=== PATIENT | female | born 1960 | race African-American/Black ===

== ENCOUNTER 2018-07-03 09:37 | Inpatient (IN) | payer OTHER ==
[~2018-07-03] VITALS: Ht 162.6 cm; Wt 124.7 kg
[~2018-07-03 09:37] MED LIST: ALL180 PO; AMLO10TA80 PO; AMLO5TAB88 PO; ASPI-867 PO; ATOR20TA65 PO; FERR325T23 PO; FURO40TA5 PO; LISI40TA4 PO; METO50TA95 PO; PRAS10TA6 PO
[2018-07-03 10:51] LABS: BASOPHILS % 0.2 % (0.0-2.0); EOSINOPHILS % 1.2 % (0.0-5.0); HEMATOCRIT. 33.3 % (36.0-48.0); MEAN CORPUSCULAR HEMOGLOBIN 27.4 pg (28.0-32.0); MEAN CORPUSCULAR VOLUME 83.4 fL (81.0-99.0); MONOCYTES % 8.6 % (2.0-8.0); PLATELET 359 x1000/uL (130-400); RED CELL DISTRIBUTION WIDTH 18.1 % (11.6-14.6)
[2018-07-03 10:56] LABS: PROTHROMBIN TIME 10.9 sec (9.4-11.6)
[2018-07-03 11:23] LABS: CHLORIDE 107 mEq/L (98-107)
[2018-07-03 12:38] LABS: CLARITY URINE CLOUDY (CLEAR); COLOR URINE YELLOW (YELLOW); KETONES URINE NEGATIVE (NEGATIVE); LEUKOCYTE ESTERASE URINE NEGATIVE (NEGATIVE); NITRITE URINE POSITIVE (NEGATIVE); OCCULT BLOOD URINE NEGATIVE (NEGATIVE); PROTEIN URINE 1+ (NEGATIVE); SPECIFIC GRAVITY URINE 1.026 (1.005-1.030)
[2018-07-03 13:28] LABS: *AMPHETAMINES SCREEN URINE NEGATIVE (NEGATIVE); CANNABINOID URINE SCREEN NEGATIVE (NEGATIVE)
[2018-07-03 13:29] LABS: *BARBITURATES SCREEN URINE NEGATIVE (NEGATIVE); *BENZODIAZEPINES SCREEN URINE NEGATIVE (NEGATIVE); *COCAINE SCREEN URINE NEGATIVE (NEGATIVE); METHADONE URINE SCREEN NEGATIVE (NEGATIVE)
[2018-07-03 13:30] LABS: OPIATES URINE SCREEN NEGATIVE (NEGATIVE); PHENCYCLIDINE URINE SCREEN NEGATIVE (NEGATIVE)
[2018-07-03 15:48] LABS: HEPATITIS B SURFACE ANTIGEN NEGATIVE
[2018-07-03 16:12] LABS: HEPATITIS B CORE AB IGM NEGATIVE
[2018-07-03 16:13] LABS: HEPATITIS A AB IGM NEGATIVE (NEGATIVE)
[2018-07-03] MEDS ORDERED: ONDANSETRON HCL 4MG/2ML VIAL IV PRN (18:45)
[2018-07-03] MEDS ORDERED: CEFTRIAXONE 1 G PREMIX 50 ML IV SCH (18:45)
[2018-07-03] MEDS ORDERED: CLONIDINE 0.1MG TABLET PO PRN (18:45)
[2018-07-03] MEDS ORDERED: DIPHENHYDRAMINE 50MG/ML VIAL IV PRN (18:45)
[2018-07-03] MEDS ORDERED: IPRATROPIUM/ALBUTEROL 0.5-3(2.5)MG/3ML NEB INH PRN (18:45)
[2018-07-03] MEDS ORDERED: GUAIFENESIN 200MG/10ML SUGAR FREE UDC PO PRN (18:45)
[2018-07-03] MEDS ORDERED: MAGNESIUM/ALUMINUM HYDROXIDE/SIMETHICONE 30ML UDC PO PRN (18:45)
[2018-07-03] MEDS ORDERED: HYDROCODONE/ACETAMINOPHEN 10/325MG TABLET PO PRN (18:45)
[2018-07-03] MEDS ORDERED: DOCUSATE SODIUM 100MG CAPSULE PO PRN (18:45)
[2018-07-03] MEDS ORDERED: LORAZEPAM 0.5MG TABLET PO PRN (18:45)
[2018-07-03 21:53] VITALS: BP 158/83
[2018-07-03] MEDS ORDERED: ASPI-1159 MT (22:41)
[2018-07-03] MEDS ORDERED: METF-816 MT (22:41)
[2018-07-03] MEDS ORDERED: ROSU5TAB10 MT (22:41)
[2018-07-03] MEDS: ENOXAPARIN 30MG/0.3ML SYR SUBCUT SCH (23:12)
[2018-07-03] MEDS ORDERED: ATORVASTATIN CALCIUM 10MG TABLET PO SCH (23:52)
[2018-07-04] VITALS: BP 136/85
[2018-07-04] MEDS: CEFTRIAXONE 1 G PREMIX 50 ML IV SCH ×2 (01:50→14:55)
[2018-07-04] MEDS ORDERED: CEFTRIAXONE 1 G PREMIX 50 ML IV SCH ×2 (02:00)
[2018-07-04 04:00] VITALS: BP 154/97
[2018-07-04] MEDS: ACETAMINOPHEN 325MG TABLET PO PRN ×2 (06:17→16:37)
[2018-07-04] MEDS: PANTOPRAZOLE 40MG DR TABLET PO SCH (06:18)
[2018-07-04 06:54] LABS: BASOPHILS % 0.2 % (0.0-2.0); CHLORIDE 107 mEq/L (98-107); EOSINOPHILS % 1.4 % (0.0-5.0); HEMATOCRIT. 32.6 % (36.0-48.0); HEMOGLOBIN. 10.7 g/dL (12.0-16.0); LYMPHOCYTES % 18.1 % (20.0-50.0); MEAN CORPUSCULAR HEMOGLOBIN 27.3 pg (28.0-32.0); MEAN CORPUSCULAR VOLUME 83.3 fL (81.0-99.0); MEAN PLATELET VOLUME 7.1 fl (7.4-10.4); MONOCYTES % 10.3 % (2.0-8.0); PLATELET 324 x1000/uL (130-400); RED BLOOD CELL COUNT 3.92 mill/uL (4.2-5.4); RED CELL DISTRIBUTION WIDTH 18.1 % (11.6-14.6)
[2018-07-04 07:58] LABS: LDL CHOLESTEROL 58 mg/dL (5-100)
[2018-07-04 08:00] VITALS: BP 172/107
[2018-07-04 08:00] LABS: HDL CHOLESTEROL 45 mg/dL (40-59)
[2018-07-04 08:02] LABS: PHOSPHORUS 3.7 mg/dL (2.5-4.9)
[2018-07-04] MEDS: ASPIRIN 81MG TABLET PO SCH (08:46)
[2018-07-04] MEDS: METOPROLOL TARTRATE 50MG TABLET PO SCH ×2 (08:47→20:29)
[2018-07-04] MEDS: METFORMIN HCL 500MG SR TABLET 24HR PO SCH (08:48)
[2018-07-04] MEDS: ENOXAPARIN 30MG/0.3ML SYR SUBCUT SCH ×2 (08:48→20:30)
[2018-07-04] MEDS ORDERED: MEDICATION NOT ON FORMULARY EA (Furosemide 40 MG) PO SCH (09:00)
[2018-07-04] MEDS ORDERED: MEDICATION NOT ON FORMULARY EA (Metformin HCl (Metformin HCl ER) 1 TAB) MT SCH (09:00)
[2018-07-04] MEDS ORDERED: FUROSEMIDE 40MG TABLET PO SCH (09:00)
[2018-07-04] MEDS ORDERED: METOPROLOL TARTRATE 50 MG PO SCH (09:00)
[2018-07-04] MEDS ORDERED: MEDICATION NOT ON FORMULARY EA (Aspirin (Aspirin Low Dose) 1 TAB) MT SCH (09:00)
[2018-07-04] MEDS: AMLODIPINE 5MG TABLET PO SCH ×2 (10:40→16:04)
[2018-07-04 12:00] VITALS: BP 146/87
[2018-07-04] MEDS: FUROSEMIDE 40MG/4ML VIAL IVP SCH (13:27)
[2018-07-04] MEDS ORDERED: GI COCKTAIL PO SCH (18:15)
[2018-07-04] MEDS ORDERED: DICYCLOMINE 10 MG/5 ML ORAL SYR PO SCH ×2 (18:30→19:30)
[2018-07-04] MEDS ORDERED: MAGNESIUM/ALUMINUM HYDROXIDE/SIMETHICONE 30ML UDC PO SCH (18:30)
[2018-07-04] MEDS ORDERED: VISCOUS LIDOCAINE 2% 15 ML UDC PO SCH (18:30)
[2018-07-04 19:40] VITALS: BP 164/86
[2018-07-04] MEDS: ATORVASTATIN CALCIUM 10MG TABLET PO SCH (20:29)
[2018-07-04] MEDS ORDERED: ROSUVASTATIN CALCIUM MT SCH (21:00)
[2018-07-04] MEDS: HYDROCODONE/ACETAMINOPHEN 5/325MG TABLET PO PRN (21:00)
[2018-07-04] MEDS ORDERED: DEXTROSE 50% WATER 50ML SYRINGE IV PRN (21:30)
[2018-07-05] VITALS: BP 149/82
[2018-07-05] MEDS: CEFTRIAXONE 1 G PREMIX 50 ML IV SCH ×2 (01:22→13:54)
[2018-07-05 04:00] VITALS: BP 116/66
[2018-07-05] MEDS: BLOOD SUGAR DIAGNOSTIC STRIP TEST SCH ×4 (06:11→20:43)
[2018-07-05] MEDS: PANTOPRAZOLE 40MG DR TABLET PO SCH (06:19)
[2018-07-05 06:33] LABS: BASOPHILS % 0.2 % (0.0-2.0); EOSINOPHILS % 1.4 % (0.0-5.0); HEMATOCRIT. 34.1 % (36.0-48.0); HEMOGLOBIN. 11.3 g/dL (12.0-16.0); LYMPHOCYTES % 19.7 % (20.0-50.0); MEAN CORPUSCULAR HEMOGLOBIN 27.5 pg (28.0-32.0); MONOCYTES % 11.4 % (2.0-8.0); NEUTROPHILS % 67.3 % (40.0-76.0); PLATELET 337 x1000/uL (130-400); RED BLOOD CELL COUNT 4.11 mill/uL (4.2-5.4); RED CELL DISTRIBUTION WIDTH 17.8 % (11.6-14.6)
[2018-07-05 06:42] LABS: CHLORIDE 100 mEq/L (98-107)
[2018-07-05 08:00] VITALS: BP 142/83
[2018-07-05] MEDS ORDERED: ONDANSETRON HCL 4MG/2ML VIAL IV NR (09:30)
[2018-07-05] MEDS: METFORMIN HCL 500MG SR TABLET 24HR PO SCH (09:44)
[2018-07-05] MEDS: HYDROCODONE/ACETAMINOPHEN 5/325MG TABLET PO PRN ×2 (09:45→23:13)
[2018-07-05] MEDS: ASPIRIN 81MG TABLET PO SCH (09:46)
[2018-07-05] MEDS: ENOXAPARIN 30MG/0.3ML SYR SUBCUT SCH ×2 (09:46→20:38)
[2018-07-05] MEDS: METOPROLOL TARTRATE 50MG TABLET PO SCH ×2 (09:46→20:39)
[2018-07-05] MEDS: AMLODIPINE 5MG TABLET PO SCH ×2 (09:46→17:05)
[2018-07-05] MEDS: PANTOPRAZOLE SODIUM 40 MG/VIAL IV SCH ×2 (09:51→20:39)
[2018-07-05 12:00] VITALS: BP 140/79
[2018-07-05] MEDS: FUROSEMIDE 40MG/4ML VIAL IVP SCH (13:54)
[2018-07-05 16:00] VITALS: BP 120/72
[2018-07-05 20:00] VITALS: BP 137/73
[2018-07-05] MEDS: ATORVASTATIN CALCIUM 10MG TABLET PO SCH (20:39)
[2018-07-05] MEDS ORDERED: PANTOPRAZOLE SODIUM 40 MG/VIAL IV SCH (21:00)
[2018-07-05 23:17] LABS: TOTAL IRON BINDING CAPACITY 370 ug/dL (250-450)
[2018-07-06] VITALS: BP 117/75
[2018-07-06] MEDS: CEFTRIAXONE 1 G PREMIX 50 ML IV SCH ×2 (02:22→13:28)
[2018-07-06 04:00] VITALS: BP 129/78
[2018-07-06 06:22] LABS: BASOPHILS % 0.3 % (0.0-2.0); EOSINOPHILS % 1.3 % (0.0-5.0); HEMATOCRIT. 36.8 % (36.0-48.0); HEMOGLOBIN. 12.1 g/dL (12.0-16.0); LYMPHOCYTES % 21.9 % (20.0-50.0); MEAN CORPUSCULAR HEMOGLOBIN 27.5 pg (28.0-32.0); MEAN CORPUSCULAR VOLUME 83.6 fL (81.0-99.0); MONOCYTES % 11.3 % (2.0-8.0); NEUTROPHILS % 65.2 % (40.0-76.0); RED BLOOD CELL COUNT 4.41 mill/uL (4.2-5.4); RED CELL DISTRIBUTION WIDTH 17.9 % (11.6-14.6)
[2018-07-06] MEDS: BLOOD SUGAR DIAGNOSTIC STRIP TEST SCH ×4 (06:41→21:02)
[2018-07-06 06:47] LABS: CHLORIDE 100 mEq/L (98-107)
[2018-07-06 06:50] LABS: AMYLASE 71 IU/L (25-115)
[2018-07-06 07:49] VITALS: BP 113/61
[2018-07-06 07:59] LABS: PLATELET 340 x1000/uL (130-400)
[2018-07-06] MEDS: ASPIRIN 81MG TABLET PO SCH (08:20)
[2018-07-06] MEDS: METOPROLOL TARTRATE 50MG TABLET PO SCH (08:21)
[2018-07-06] MEDS: METFORMIN HCL 500MG SR TABLET 24HR PO SCH (08:21)
[2018-07-06] MEDS: AMLODIPINE 5MG TABLET PO SCH ×2 (08:21→16:44)
[2018-07-06] MEDS: PANTOPRAZOLE SODIUM 40 MG/VIAL IV SCH (09:30)
[2018-07-06] MEDS: ENOXAPARIN 30MG/0.3ML SYR SUBCUT SCH (09:31)
[2018-07-06 12:00] VITALS: BP 126/62
[2018-07-06] MEDS: FUROSEMIDE 40MG/4ML VIAL IVP SCH (13:22)
[2018-07-06] MEDS ORDERED: SODIUM CHLORIDE 0.9% 10ML VIAL ONE (14:35)
[2018-07-06] MEDS ORDERED: SIMETHICONE 40 MG/0.6 ML 30ML ONE (14:59)
[2018-07-06] MEDS ORDERED: LACTULOSE 20G/30ML UDC PO NR (15:00)
[2018-07-06] MEDS ORDERED: MIDAZOLAM HCL 5 MG/5 ML VIAL ONE (15:02)
[2018-07-06] MEDS ORDERED: FENTANYL CITRATE/PF 50MCG/ML 2ML VIAL ONE (15:03)
[2018-07-06] MEDS ORDERED: MIDAZOLAM HCL 5 MG/5 ML VIAL IV PRN (15:10)
[2018-07-06] MEDS ORDERED: FENTANYL CITRATE/PF 50MCG/ML 2ML VIAL IV SCH (15:11)
[2018-07-06] MEDS ORDERED: OMEP20CA10 PO (15:55)
[2018-07-06] MEDS ORDERED: OMEPRAZOLE 20MG CAPSULE EXTENDED RELEASE PO NR (16:00)
[2018-07-06] MEDS ORDERED: SORBITOL 70% SOLN 30ML PO NR (16:00)
[2018-07-06 16:40] VITALS: BP 134/77
[2018-07-06 17:07] VITALS: BP 134/77
[2018-07-07] MEDS ORDERED: OMEPRAZOLE 20MG CAPSULE EXTENDED RELEASE PO SCH (07:10)
== END 2018-07-06 20:50 | disposition home or self-care (01) | DRG 380 ==
LOC: ER 09:37 → SUPCPDRO 17:55 → 8WST 17:58 → ENRESERV 21:22
PROVIDERS: ADMIT Family Medicine Adult Medicine; ATTEND Family Medicine Adult Medicine
PROC: 0DB68ZX Excision of Stomach, Via Natural or Artificial Opening Endoscopic, Diagnostic (ICD-10-PCS; principal; 2018-07-06 15:00)
DX: K22.10 Ulcer of esophagus without bleeding (principal); I50.43 Acute on chronic combined systolic (congestive) and diastolic (congestive) heart failure; N39.0 Urinary tract infection, site not specified; I42.9 Cardiomyopathy, unspecified; Z68.42 Body mass index [BMI] 45.0-49.9, adult; K29.60 Other gastritis without bleeding; K44.9 Diaphragmatic hernia without obstruction or gangrene; K21.9 Gastro-esophageal reflux disease without esophagitis; R07.89 Other chest pain; I25.10 Atherosclerotic heart disease of native coronary artery without angina pectoris; G47.33 Obstructive sleep apnea (adult) (pediatric); E66.01 Morbid (severe) obesity due to excess calories; E78.5 Hyperlipidemia, unspecified; I11.0 Hypertensive heart disease with heart failure; I34.0 Nonrheumatic mitral (valve) insufficiency; E11.9 Type 2 diabetes mellitus without complications; K43.9 Ventral hernia without obstruction or gangrene; D25.9 Leiomyoma of uterus, unspecified; K59.00 Constipation, unspecified; K80.20 Calculus of gallbladder without cholecystitis without obstruction; Z95.5 Presence of coronary angioplasty implant and graft; Z79.899 Other long term (current) drug therapy; I25.2 Old myocardial infarction; Z90.49 Acquired absence of other specified parts of digestive tract; Z90.710 Acquired absence of both cervix and uterus; Z98.891 History of uterine scar from previous surgery; Z79.82 Long term (current) use of aspirin; Z79.84 Long term (current) use of oral hypoglycemic drugs
CPT/HCPCS: 36415; 71045; 74018; 74176; 76705; 80048; 80053; 80061; 80305; 81003; 82150; 82728; 82962; 83036; 83540; 83550; 83690; 83735; 83880; 84100; 84439; 84443; 84484; 85025; 85610; 86677; 86705; 86709; 86803; 87040; 87077; 87086; 87186; 87340; 93005; 93306; 93970; 97162; 97165; 99285; C1893; C9113; J0696; J1650; J1940; J2250; J2405; J3010; J7050

== ENCOUNTER 2019-05-23 09:26 | Inpatient (IN) | payer OTHER ==
[~2019-05-23] VITALS: Ht 162.6 cm; Wt 121.1 kg
[~2019-05-23 09:26] MED LIST changes: -ALL180 PO; -AMLO10TA80 PO; -AMLO5TAB88 PO; +ASPI-1393 MT; -ASPI-867 PO; -ATOR20TA65 PO; -FERR325T23 PO; -LISI40TA4 PO; +METF-816 MT; +OMEP20CA5 PO; -PRAS10TA6 PO; +ROSU5TAB10 MT
[2019-05-23 10:23] LABS: BASOPHILS % 0.3 % (0.0-2.0); HEMATOCRIT. 36.7 % (36.0-48.0); HEMOGLOBIN. 12.2 g/dL (12.0-16.0); LYMPHOCYTES % 24.7 % (20.0-50.0); MEAN CORPUSCULAR HEMOGLOBIN 29.3 pg (28.0-32.0); MEAN CORPUSCULAR VOLUME 88.4 fL (81.0-99.0); MEAN PLATELET VOLUME 6.9 fl (7.4-10.4); MONOCYTES % 12.3 % (2.0-8.0); NEUTROPHILS % 60.7 % (40.0-76.0); PLATELET 275 x1000/uL (130-400); RED BLOOD CELL COUNT 4.16 mill/uL (4.2-5.4); RED CELL DISTRIBUTION WIDTH 15.1 % (11.6-14.6)
[2019-05-23 10:27] LABS: CHLORIDE 109 mEq/L (98-107)
[2019-05-23] MEDS ORDERED: ASPIRIN 81MG TABLET PO ONE (10:45)
[2019-05-23] MEDS ORDERED: FUROSEMIDE 20MG/2ML VIAL IVP ONE (10:45)
[2019-05-23] MEDS ORDERED: ACETAMINOPHEN 325MG TABLET PO PRN (12:00)
[2019-05-23] MEDS ORDERED: DIPHENHYDRAMINE 50MG/ML VIAL IV PRN (12:00)
[2019-05-23] MEDS ORDERED: DOCUSATE SODIUM 100MG CAPSULE PO PRN (12:00)
[2019-05-23] MEDS ORDERED: CLONIDINE 0.1MG TABLET PO PRN (12:00)
[2019-05-23] MEDS ORDERED: MAGNESIUM/ALUMINUM HYDROXIDE/SIMETHICONE 30ML UDC PO PRN (12:00)
[2019-05-23] MEDS ORDERED: MORPHINE SULFATE 2 MG/ML CPJ (NOT FOR IM USE) IV PRN (12:00)
[2019-05-23] MEDS ORDERED: GUAIFENESIN 200MG/10ML SUGAR FREE UDC PO PRN (12:00)
[2019-05-23] MEDS ORDERED: LORAZEPAM 0.5MG TABLET PO PRN (12:00)
[2019-05-23 12:39] LABS: PARTIAL THROMBOPLASTIN TIME 25.6 sec (23.4-31.0); PROTHROMBIN TIME 10.6 sec (9.6-11.0)
[2019-05-23 12:54] LABS: PHOSPHORUS 3.1 mg/dL (2.5-4.9)
[2019-05-23 13:43] LABS: CLARITY URINE CLEAR (CLEAR); COLOR URINE YELLOW (YELLOW); KETONES URINE NEGATIVE (NEGATIVE); LEUKOCYTE ESTERASE URINE NEGATIVE (NEGATIVE); NITRITE URINE NEGATIVE (NEGATIVE); OCCULT BLOOD URINE NEGATIVE (NEGATIVE); PH URINE 5.5 (4.5-8.0); PROTEIN URINE NEGATIVE (NEGATIVE); SPECIFIC GRAVITY URINE 1.007 (1.005-1.030); UROBILINOGEN URINE 0.2 E.U./dL (0.2-1.0)
[2019-05-23 15:00] VITALS: BP 141/82
[2019-05-23 15:21] VITALS: BP 141/82
[2019-05-23] MEDS ORDERED: PNEUMOCOCCAL 23-VAL P-SAC VAC 0.5 ML IM ONE (15:45)
[2019-05-23] MEDS: KETOROLAC 15MG/ML VIAL IV PRN (16:07)
[2019-05-23] MEDS: NITROGLYCERIN OINT 1GM/INCH UDPKT TD SCH ×2 (17:23→22:00)
[2019-05-23] MEDS: PANTOPRAZOLE 40MG DR TABLET PO SCH (17:23)
[2019-05-23 20:00] VITALS: BP 140/83
[2019-05-23] MEDS: AMLODIPINE 5MG TABLET PO SCH (20:26)
[2019-05-23] MEDS: HYDROCODONE/ACETAMINOPHEN 5/325MG TABLET PO PRN (20:27)
[2019-05-23] MEDS: ENOXAPARIN 30MG/0.3ML SYR SUBCUT SCH (20:39)
[2019-05-24] VITALS: BP 147/78
[2019-05-24] MEDS: NITROGLYCERIN OINT 1GM/INCH UDPKT TD SCH (05:09)
[2019-05-24] MEDS: HYDROCODONE/ACETAMINOPHEN 5/325MG TABLET PO PRN (05:10)
[2019-05-24] MEDS: PANTOPRAZOLE 40MG DR TABLET PO SCH (06:12)
[2019-05-24 06:54] LABS: BASOPHILS % 0.3 % (0.0-2.0); EOSINOPHILS % 3.2 % (0.0-5.0); HEMATOCRIT. 36.1 % (36.0-48.0); HEMOGLOBIN. 12.1 g/dL (12.0-16.0); LYMPHOCYTES % 26.1 % (20.0-50.0); MEAN CORPUSCULAR HEMOGLOBIN 29.5 pg (28.0-32.0); MEAN CORPUSCULAR VOLUME 88.1 fL (81.0-99.0); MEAN PLATELET VOLUME 6.9 fl (7.4-10.4); MONOCYTES % 11.4 % (2.0-8.0); PLATELET 286 x1000/uL (130-400); RED CELL DISTRIBUTION WIDTH 15.3 % (11.6-14.6)
[2019-05-24 07:23] LABS: CHLORIDE 107 mEq/L (98-107)
[2019-05-24 07:35] LABS: HDL CHOLESTEROL 44 mg/dL (40-59); LDL CHOLESTEROL 89 mg/dL (5-100)
[2019-05-24 08:00] VITALS: BP 144/82
[2019-05-24] MEDS: ENOXAPARIN 30MG/0.3ML SYR SUBCUT SCH ×2 (08:42→20:21)
[2019-05-24] MEDS: AMLODIPINE 5MG TABLET PO SCH ×2 (08:42→20:20)
[2019-05-24 12:00] VITALS: BP 122/65
[2019-05-24] MEDS ORDERED: REGADENOSON 0.4 MG/5 ML IV NR (15:15)
[2019-05-24] MEDS: ASPIRIN 81MG TABLET PO SCH (15:35)
[2019-05-24] MEDS ORDERED: FERR325T6 PO (15:43)
[2019-05-24 16:00] VITALS: BP 148/86
[2019-05-24 20:00] VITALS: BP 151/83
[2019-05-24] MEDS: METOPROLOL TARTRATE 50MG TABLET PO SCH (20:19)
[2019-05-25] VITALS: BP 138/82
[2019-05-25] MEDS: KETOROLAC 15MG/ML VIAL IV PRN ×4 (02:09→14:52)
[2019-05-25] MEDS: ONDANSETRON HCL 4MG/2ML INJ IV PRN ×4 (02:25→20:07)
[2019-05-25 06:53] LABS: BASOPHILS % 0.2 % (0.0-2.0); HEMATOCRIT. 35.4 % (36.0-48.0); HEMOGLOBIN. 11.8 g/dL (12.0-16.0); LYMPHOCYTES % 23.7 % (20.0-50.0); MEAN CORPUSCULAR HEMOGLOBIN 29.5 pg (28.0-32.0); MEAN CORPUSCULAR VOLUME 88.7 fL (81.0-99.0); MEAN PLATELET VOLUME 6.8 fl (7.4-10.4); MONOCYTES % 12.6 % (2.0-8.0); NEUTROPHILS % 60.5 % (40.0-76.0); PLATELET 261 x1000/uL (130-400); RED BLOOD CELL COUNT 3.99 mill/uL (4.2-5.4); RED CELL DISTRIBUTION WIDTH 15.2 % (11.6-14.6)
[2019-05-25 07:34] LABS: CHLORIDE 107 mEq/L (98-107)
[2019-05-25 08:00] VITALS: BP 122/74
[2019-05-25] MEDS: ASPIRIN 81MG TABLET PO SCH (08:42)
[2019-05-25] MEDS: AMLODIPINE 5MG TABLET PO SCH ×2 (08:42→21:21)
[2019-05-25] MEDS: METOPROLOL TARTRATE 50MG TABLET PO SCH ×2 (08:43→21:22)
[2019-05-25] MEDS: ENOXAPARIN 30MG/0.3ML SYR SUBCUT SCH ×2 (08:50→21:24)
[2019-05-25] MEDS ORDERED: FAMOTIDINE 20MG TABLET PO SCH (09:00)
[2019-05-25] MEDS ORDERED: REGADENOSON 0.4 MG/5 ML IV ONE (09:21)
[2019-05-25 12:00] VITALS: BP 151/94
[2019-05-25 16:00] VITALS: BP 135/87
[2019-05-25] MEDS: METOCLOPRAMIDE HCL 10MG/2ML VIAL IV SCH ×2 (17:21→21:23)
[2019-05-25 20:00] VITALS: BP 135/77
[2019-05-25] MEDS: PANTOPRAZOLE 40MG DR TABLET PO SCH (21:21)
[2019-05-26] VITALS: BP 125/74
[2019-05-26 04:00] VITALS: BP 102/58
[2019-05-26] MEDS: METOCLOPRAMIDE HCL 10MG/2ML VIAL IV SCH (05:35)
[2019-05-26] MEDS: PANTOPRAZOLE 40MG DR TABLET PO SCH (05:35)
[2019-05-26 08:00] VITALS: BP 138/81
[2019-05-26] MEDS: AMLODIPINE 5MG TABLET PO SCH (08:32)
[2019-05-26] MEDS: ASPIRIN 81MG TABLET PO SCH (08:32)
[2019-05-26] MEDS: METOPROLOL TARTRATE 50MG TABLET PO SCH (08:32)
[2019-05-26] MEDS: ENOXAPARIN 30MG/0.3ML SYR SUBCUT SCH (08:33)
[2019-05-26 12:00] VITALS: BP 130/74
== END 2019-05-26 15:10 | disposition home or self-care (01) | DRG 313 ==
LOC: ER 09:38 → 5WST 11:55 → EDBEDREQ 11:58 → ENRESERV 13:47
PROVIDERS: ADMIT Family Medicine Adult Medicine; ATTEND Family Medicine Adult Medicine
DX: R07.89 Other chest pain (principal); I11.0 Hypertensive heart disease with heart failure; I50.9 Heart failure, unspecified; E11.9 Type 2 diabetes mellitus without complications; E78.5 Hyperlipidemia, unspecified; G56.03 Carpal tunnel syndrome, bilateral upper limbs; I25.10 Atherosclerotic heart disease of native coronary artery without angina pectoris; K21.9 Gastro-esophageal reflux disease without esophagitis; R10.9 Unspecified abdominal pain; T38.0X5A Adverse effect of glucocorticoids and synthetic analogues, initial encounter; Y92.89 Other specified places as the place of occurrence of the external cause; Z82.49 Family history of ischemic heart disease and other diseases of the circulatory system; Z90.710 Acquired absence of both cervix and uterus; Z95.5 Presence of coronary angioplasty implant and graft; I25.2 Old myocardial infarction; Z98.891 History of uterine scar from previous surgery; Z90.49 Acquired absence of other specified parts of digestive tract; Z79.899 Other long term (current) drug therapy; Z79.82 Long term (current) use of aspirin; Z79.84 Long term (current) use of oral hypoglycemic drugs; Z83.3 Family history of diabetes mellitus
CPT/HCPCS: 36415; 71045; 78452; 80048; 80061; 83036; 83735; 83880; 84100; 84443; 84484; 85379; 85651; 86141; 93005; 93017; 93306; 93970; 96372; 97162; 97166; 99285; A9500; J1650; J1885; J1940; J2270; J2405; J2765; J2785

== ENCOUNTER 2021-07-26 22:01 | Inpatient (IN) | payer OTHER ==
[~2021-07-26] VITALS: Ht 162.6 cm; Wt 126.1 kg
[~2021-07-26 22:01] MED LIST changes: -ASPI-1393 MT; +ASPI-1497 MT; +FERR325T6 PO; -METF-816 MT; +OMEP20CA14 PO; -OMEP20CA5 PO
[2021-07-26] MEDS ORDERED: ONDANSETRON HCL 4MG/2ML INJ IV STA (22:49)
[2021-07-26] MEDS ORDERED: NITROGLYCERIN 0.4MG TABLET SL SL PRN (23:00)
[2021-07-26] MEDS ORDERED: DILTIAZEM HCL 5MG/ML 5ML VIAL IV ONE (23:00)
[2021-07-26] MEDS ORDERED: ASPIRIN 81MG TABLET PO ONE (23:00)
[2021-07-26 23:53] LABS: BASOPHILS % 0.3 % (0.0-2.0); EOSINOPHILS % 2.9 % (0.0-5.0); HEMATOCRIT. 39.5 % (36.0-48.0); HEMOGLOBIN. 13.6 g/dL (12.0-16.0); LYMPHOCYTES % 25.7 % (20.0-50.0); MEAN CORPUSCULAR HEMOGLOBIN 30.6 pg (28.0-32.0); MEAN CORPUSCULAR VOLUME 88.6 fL (81.0-99.0); MEAN PLATELET VOLUME 6.7 fl (7.4-10.4); MONOCYTES % 9.9 % (2.0-8.0); NEUTROPHILS % 61.2 % (40.0-76.0); PLATELET 324 x1000/uL (130-400); RED BLOOD CELL COUNT 4.46 mill/uL (4.2-5.4)
[2021-07-26 23:57] LABS: CHLORIDE 108 mEq/L (98-107)
[2021-07-27 00:02] LABS: D-DIMER 0.29 mg/L FEU (<0.50); ETHANOL BLOOD 71 mg/dL; PARTIAL THROMBOPLASTIN TIME 24.9 sec (23.4-31.0); PROTHROMBIN TIME 10.6 sec (9.6-11.0)
[2021-07-27] MEDS ORDERED: POTASSIUM CHLORIDE 20MEQ TABLET SR PO ONE (00:15)
[2021-07-27] MEDS ORDERED: ACETAMINOPHEN 325MG TABLET PO ONE (00:15)
[2021-07-27] MEDS ORDERED: FUROSEMIDE 40MG/4ML VIAL IVP ONE (01:00)
[2021-07-27] MEDS: MAGNESIUM OXIDE 400MG TABLET PO SCH ×2 (01:57→11:51)
[2021-07-27] MEDS ORDERED: CLONIDINE 0.1MG TABLET PO PRN (05:30)
[2021-07-27] MEDS ORDERED: MAGNESIUM/ALUMINUM HYDROXIDE/SIMETHICONE 30ML UDC PO PRN (05:30)
[2021-07-27] MEDS ORDERED: HYDROCODONE/ACETAMINOPHEN 5/325MG TABLET PO PRN (05:30)
[2021-07-27] MEDS ORDERED: ONDANSETRON HCL 4MG/2ML INJ IV PRN (05:30)
[2021-07-27] MEDS ORDERED: ACETAMINOPHEN 325MG TABLET PO PRN (05:30)
[2021-07-27] MEDS ORDERED: DEXTROSE 50% WATER 50ML SYRINGE IV PRN ×2 (05:30)
[2021-07-27 06:07] LABS: *AMPHETAMINES SCREEN URINE NEGATIVE (NEGATIVE); *BARBITURATES SCREEN URINE NEGATIVE (NEGATIVE); *BENZODIAZEPINES SCREEN URINE NEGATIVE (NEGATIVE); *COCAINE SCREEN URINE NEGATIVE (NEGATIVE); METHADONE URINE SCREEN NEGATIVE (NEGATIVE); OPIATES URINE SCREEN NEGATIVE (NEGATIVE)
[2021-07-27 06:08] LABS: CANNABINOID URINE SCREEN NEGATIVE (NEGATIVE); PHENCYCLIDINE URINE SCREEN NEGATIVE (NEGATIVE)
[2021-07-27] MEDS ORDERED: ENOXAPARIN 40MG/0.4ML SYR SUBCUT SCH (09:00)
[2021-07-27 10:57] VITALS: BP 154/80
[2021-07-27] MEDS ORDERED: METF-873 MT (11:07)
[2021-07-27] MEDS: BLOOD SUGAR DIAGNOSTIC STRIP TEST SCH ×3 (11:40→21:00)
[2021-07-27] MEDS: INSULIN LISPRO 100 UNITS/ML SUBCUT SCH ×3 (11:45→21:00)
[2021-07-27] MEDS: METOPROLOL TARTRATE 25MG TABLET PO SCH ×2 (11:52→22:38)
[2021-07-27 12:00] VITALS: BP 154/80
[2021-07-27 16:00] VITALS: BP 142/71
[2021-07-27 20:00] VITALS: BP 140/80
[2021-07-27] MEDS: ENOXAPARIN 30MG/0.3ML SYR SUBCUT SCH (22:38)
[2021-07-27] MEDS: ATORVASTATIN CALCIUM 10MG TABLET PO SCH (22:38)
[2021-07-28] VITALS: BP 111/70
[2021-07-28 04:00] VITALS: BP 97/60
[2021-07-28 05:48] LABS: BASOPHILS % 0.3 % (0.0-2.0); EOSINOPHILS % 3.1 % (0.0-5.0); HEMATOCRIT. 38.1 % (36.0-48.0); HEMOGLOBIN. 12.7 g/dL (12.0-16.0); LYMPHOCYTES % 28.8 % (20.0-50.0); MEAN CORPUSCULAR HEMOGLOBIN 30.3 pg (28.0-32.0); MEAN CORPUSCULAR VOLUME 90.9 fL (81.0-99.0); MEAN PLATELET VOLUME 6.7 fl (7.4-10.4); MONOCYTES % 12.7 % (2.0-8.0); NEUTROPHILS % 55.1 % (40.0-76.0); PLATELET 274 x1000/uL (130-400); RED BLOOD CELL COUNT 4.19 mill/uL (4.2-5.4); RED CELL DISTRIBUTION WIDTH 15.2 % (11.6-14.6)
[2021-07-28 05:55] LABS: CHLORIDE 107 mEq/L (98-107)
[2021-07-28 06:05] LABS: PHOSPHORUS 2.9 mg/dL (2.5-4.9)
[2021-07-28 06:06] LABS: LDL CHOLESTEROL 99 mg/dL (5-100)
[2021-07-28 06:07] LABS: HDL CHOLESTEROL 44 mg/dL (40-59)
[2021-07-28] MEDS: BLOOD SUGAR DIAGNOSTIC STRIP TEST SCH ×4 (06:40→21:00)
[2021-07-28] MEDS: INSULIN LISPRO 100 UNITS/ML SUBCUT SCH ×4 (07:10→21:00)
[2021-07-28 08:00] VITALS: BP 133/88
[2021-07-28] MEDS: FUROSEMIDE 40MG/4ML VIAL IV SCH (09:40)
[2021-07-28] MEDS: DOCUSATE SODIUM 100MG CAPSULE PO PRN (09:41)
[2021-07-28] MEDS: ENOXAPARIN 30MG/0.3ML SYR SUBCUT SCH ×2 (09:42→22:06)
[2021-07-28] MEDS: MAGNESIUM OXIDE 400MG TABLET PO SCH (09:42)
[2021-07-28] MEDS: METOPROLOL TARTRATE 25MG TABLET PO SCH ×2 (09:42→22:10)
[2021-07-28] MEDS: ASPIRIN 81MG EC TABLET PO SCH (09:42)
[2021-07-28 12:00] VITALS: BP 147/57
[2021-07-28 16:00] VITALS: BP 153/83
[2021-07-28 20:00] VITALS: BP 165/84
[2021-07-28] MEDS ORDERED: NALOXONE HCL 0.4MG/ML VIAL IV PRN (22:00)
[2021-07-28] MEDS: ATORVASTATIN CALCIUM 10MG TABLET PO SCH (22:05)
[2021-07-29] VITALS (7 sets, daily range): BP systolic 105–144; BP diastolic 55–89
[2021-07-29] MEDS: BLOOD SUGAR DIAGNOSTIC STRIP TEST SCH ×4 (06:16→21:00)
[2021-07-29] MEDS: INSULIN LISPRO 100 UNITS/ML SUBCUT SCH ×4 (06:16→21:00)
[2021-07-29] MEDS ORDERED: REGADENOSON 0.4 MG/5 ML IV ONE (07:00)
[2021-07-29 08:13] LABS: CHLORIDE 108 mEq/L (98-107)
[2021-07-29 08:27] LABS: BASOPHILS % 0.2 % (0.0-2.0); EOSINOPHILS % 2.8 % (0.0-5.0); HEMATOCRIT. 38.8 % (36.0-48.0); HEMOGLOBIN. 12.9 g/dL (12.0-16.0); LYMPHOCYTES % 30.1 % (20.0-50.0); MEAN CORPUSCULAR HEMOGLOBIN 30.2 pg (28.0-32.0); MEAN CORPUSCULAR VOLUME 90.5 fL (81.0-99.0); MEAN PLATELET VOLUME 6.7 fl (7.4-10.4); MONOCYTES % 12.8 % (2.0-8.0); NEUTROPHILS % 54.1 % (40.0-76.0); PLATELET 285 x1000/uL (130-400); RED BLOOD CELL COUNT 4.28 mill/uL (4.2-5.4); RED CELL DISTRIBUTION WIDTH 15.2 % (11.6-14.6)
[2021-07-29] MEDS: ASPIRIN 81MG EC TABLET PO SCH (09:24)
[2021-07-29] MEDS: DOCUSATE SODIUM 100MG CAPSULE PO PRN (09:24)
[2021-07-29] MEDS: AMLODIPINE 5MG TABLET PO SCH (09:24)
[2021-07-29] MEDS: FUROSEMIDE 40MG/4ML VIAL IV SCH (09:25)
[2021-07-29] MEDS: METOPROLOL TARTRATE 25MG TABLET PO SCH ×2 (09:25→22:26)
[2021-07-29] MEDS: MAGNESIUM OXIDE 400MG TABLET PO SCH (09:25)
[2021-07-29] MEDS: ENOXAPARIN 30MG/0.3ML SYR SUBCUT SCH ×2 (11:57→22:22)
[2021-07-29] MEDS ORDERED: NA PHOS,M-B/NA PHOS,DI-BA ENEMA 118ML PR ONE (12:30)
[2021-07-29] MEDS: ATORVASTATIN CALCIUM 10MG TABLET PO SCH (22:26)
[2021-07-30] VITALS: BP 142/67
[2021-07-30 04:00] VITALS: BP 128/75
[2021-07-30] MEDS: BLOOD SUGAR DIAGNOSTIC STRIP TEST SCH ×2 (06:13→11:40)
[2021-07-30] MEDS: INSULIN LISPRO 100 UNITS/ML SUBCUT SCH ×2 (06:14→12:10)
[2021-07-30 07:44] LABS: BASOPHILS % 0.2 % (0.0-2.0); EOSINOPHILS % 3.1 % (0.0-5.0); HEMATOCRIT. 37.6 % (36.0-48.0); HEMOGLOBIN. 12.7 g/dL (12.0-16.0); LYMPHOCYTES % 27.3 % (20.0-50.0); MEAN CORPUSCULAR HEMOGLOBIN 30.2 pg (28.0-32.0); MEAN CORPUSCULAR VOLUME 89.2 fL (81.0-99.0); MEAN PLATELET VOLUME 6.7 fl (7.4-10.4); MONOCYTES % 13.5 % (2.0-8.0); NEUTROPHILS % 55.9 % (40.0-76.0); PLATELET 292 x1000/uL (130-400); RED BLOOD CELL COUNT 4.22 mill/uL (4.2-5.4); RED CELL DISTRIBUTION WIDTH 15.2 % (11.6-14.6)
[2021-07-30 07:59] LABS: CHLORIDE 107 mEq/L (98-107)
[2021-07-30 08:00] VITALS: BP 147/89
[2021-07-30] MEDS: MAGNESIUM OXIDE 400MG TABLET PO SCH (09:49)
[2021-07-30] MEDS: FUROSEMIDE 40MG/4ML VIAL IV SCH (09:50)
[2021-07-30] MEDS: AMLODIPINE 5MG TABLET PO SCH (09:50)
[2021-07-30] MEDS: METOPROLOL TARTRATE 25MG TABLET PO SCH (09:50)
[2021-07-30] MEDS ORDERED: REGADENOSON 0.4 MG/5 ML IV ONE (11:40)
[2021-07-30 13:00] VITALS: BP 124/78
[2021-07-30 13:29] VITALS: BP 124/78
[2021-07-30] MEDS: ENOXAPARIN 30MG/0.3ML SYR SUBCUT SCH (13:38)
[2021-07-30] MEDS: ASPIRIN 81MG EC TABLET PO SCH (13:38)
== END 2021-07-30 15:25 | disposition home or self-care (01) | DRG 308 ==
LOC: ER 22:01 → 7EST 07-27 03:10 → ENRESERV 07-27 08:24 → CANRESERV 07-27 08:24 → ENRESERV 07-27 08:29 → EDBEDREQ 07-27 11:28
PROVIDERS: ADMIT Specialist; ATTEND Specialist
DX: I48.92 Unspecified atrial flutter (principal); I50.31 Acute diastolic (congestive) heart failure; Z68.42 Body mass index [BMI] 45.0-49.9, adult; E87.6 Hypokalemia; E83.42 Hypomagnesemia; E78.5 Hyperlipidemia, unspecified; E11.9 Type 2 diabetes mellitus without complications; E66.09 Other obesity due to excess calories; E87.8 Other disorders of electrolyte and fluid balance, not elsewhere classified; F10.129 Alcohol abuse with intoxication, unspecified; G47.33 Obstructive sleep apnea (adult) (pediatric); I11.0 Hypertensive heart disease with heart failure; I25.10 Atherosclerotic heart disease of native coronary artery without angina pectoris; I27.20 Pulmonary hypertension, unspecified; I34.0 Nonrheumatic mitral (valve) insufficiency; Z20.822 Contact with and (suspected) exposure to COVID-19; E78.00 Pure hypercholesterolemia, unspecified; I25.2 Old myocardial infarction; Z79.899 Other long term (current) drug therapy; Z90.710 Acquired absence of both cervix and uterus; Z95.5 Presence of coronary angioplasty implant and graft; Z79.82 Long term (current) use of aspirin; Z98.891 History of uterine scar from previous surgery; Z71.3 Dietary counseling and surveillance
CPT/HCPCS: 36415; 71045; 76700; 78452; 80048; 80053; 80061; 80076; 80305; 80320; 82962; 83036; 83735; 83880; 84100; 84443; 84484; 85025; 85379; 87426; 93005; 93017; 93306; 93970; 99285; A9500; J1650; J1940; J2405; J2785; J3490; G0480